=== PATIENT | female | born 1960 | race Caucasian/White ===

== ENCOUNTER 2021-06-10 09:33 | Emergency (ER) | payer BC ==
[2021-06-10 09:46] VITALS: RESP 18
[2021-06-10] MEDS ORDERED: DIPHENOX-ATROP 2.5-0.025 MG 1 EACH TAB PO STA ×2 (09:51→09:58)
[2021-06-10] MEDS ORDERED: SODIUM CHLORIDE 0.9% 1,000 ML IV STA (09:51)
--- NOTE | 2021-06-10 10:01 | ED ---
General Adult HPI - General Chief complaint: Nausea/Vomiting/Diarrhea Stated complaint: Chest pain Time Seen by Provider: 06/10/21 09:40 Source: patient, EMS, RN notes reviewed, old records reviewed Mode of arrival: EMS Limitations: no limitations - History of Present Illness Initial comments: This is a 61-year-old female who presents to the emergency department stating that at 11:00 last night she started vomiting having diarrhea. Patient states that continued throughout the evening. Patient states when EMS arrived they gave her something for vomiting she hasn't vomited since. And she is feeling a little bit less nauseous at this time. Patient states last episode of diarrhea was when she was at her house. Patient denies any abdominal pain. Patient states she doesn't know what caused that last night she had dinner with her and he is not sick. Patient states during the day she did have 1 hamburger from [email or web address] that she did not think tasted good and she wonders if that was the cause. Patient denies any fevers chills. Patient denies any difficulty breathing or chest pain or palpitations. Patient denies any dysuria hematuria urinary frequency. Patient denies any back pain. Patient states she had a short episode of some chest discomfort when she was vomiting. Patient states that only lasts a couple minutes and it is subsided never returned. That occurred at approximately 3:00 in the morning - Related Data Home Medications Medication Instructions Recorded Confirmed Atorvastatin Calcium [Lipitor] 40 mg PO HS 06/10/21 06/10/21 Calcium Carbonate/Vitamin D3 1 tab PO DAILY 06/10/21 06/10/21 [Calcium 600 mg-Vit D3 10 mcg (400 Unit)] Cetirizine HCl 10 mg PO DAILY 06/10/21 06/10/21 Enalapril Maleate 10 mg PO BID 06/10/21 06/10/21 Venlafaxine HCl [Effexor XR] 150 mg PO DAILY 06/10/21 06/10/21 Zinc 50 mg PO DAILY 06/10/21 06/10/21 Allergies Allergy/AdvReac Type Severity Reaction Status Date / Time seasonal allergies Allergy Itching Uncoded 06/10/21 10:48 Review of Systems ROS Statement: Those systems with pertinent positive or pertinent negative responses have been documented in the HPI. ROS Other: All systems not noted in ROS Statement are negative. Past Medical History Past Medical History: Hyperlipidemia, Hypertension Additional Past Medical History / Comment(s): Left bundle branch block, History of Any Multi-Drug Resistant Organisms: None Reported Past Surgical History: Cholecystectomy Additional Past Surgical History / Comment(s): Uteral removal, bunion removal of right foot, Past Psychological History: Anxiety Smoking Status: Never smoker Past Alcohol Use History: Occasional Past Drug Use History: None Reported General Exam - General Exam Comments Initial Comments: GENERAL: Patient is well-developed and well-nourished. Patient is nontoxic and well- hydrated and is in mild distress. ENT: Neck is soft and supple. No significant lymphadenopathy is noted. Oropharynx is clear. Moist mucous membranes. Neck has full range of motion without eliciting any pain. EYES: The sclera were anicteric and conjunctiva were pink and moist. Extraocular movements were intact and pupils were equal round and reactive to light. Eyel ids were unremarkable. PULMONARY: Unlabored respirations. Good breath sounds bilaterally. No audible rales rhonchi or wheezing was noted. CARDIOVASCULAR: There is a regular rate and rhythm without any murmurs gallops or rubs. ABDOMEN: Soft and nontender with normal bowel sounds. SKIN: Skin is clear with no lesions or rashes and otherwise unremarkable. NEUROLOGIC: Patient is alert and oriented x3. Cranial nerves II through XII are grossly intact. Motor and sensory are also intact. Normal speech, volume and content. Symmetrical smile. MUSCULOSKELETAL: Normal extremities with adequate strength and full range of motion. No lower extremity swelling or edema. No calf tenderness. LYMPHATICS: No significant lymphadenopathy is noted PSYCHIATRIC: Normal psychiatric evaluation. N Limitations: no limitations Course Vital Signs 06/10/21 06/10/21 09:39 12:02 Temperature 98.0 F Pulse Rate 87 94 Respiratory 18 18 Rate Blood Pressure 135/103 131/76 O2 Sat by Pulse 97 97 Oximetry Medical Decision Making - Medical Decision Making EKG shows sinus rhythm 82 bpm [place] interval 153 every is 145 Q-T is 420 QTC is 548. Patient's EKG shows a left bundle branch block. Patient received a liter of fluid in the emergency department. Patient also received Lomotil in the emergency department and Zofran in the ambulance. I back in and reevaluated the patient she stated she was still nauseous a little but no vomiting and no diarrhea. Patient was tolerating ice chips in the emergency department with no problems. - Lab Data Result diagrams: 06/10/21 09:57 06/10/21 09:57 Lab Results 06/10/21 06/10/21 06/10/21 Range/Units 09:52 09:57 09:57 WBC 14.9 H (3.8-10.6) k/uL RBC 4.58 (3.80-5.40) m/uL Hgb 14.2 (11.4-16.0) gm/dL Hct 42.4 (34.0-46.0) % MCV 92.6 (80.0-100.0) fL MCH 31.1 (25.0-35.0) pg MCHC 33.6 (31.0-37.0) g/dL RDW 12.9 (11.5-15.5) % Plt Count 267 (150-450) k/uL MPV 7.4 Neutrophils % 94 % Lymphocytes % 2 % Monocytes % 2 % Eosinophils % 1 % Basophils % 0 % Neutrophils # 14.0 H (1.3-7.7) k/uL Lymphocytes # 0.3 L (1.0-4.8) k/uL Monocytes # 0.3 (0-1.0) k/uL Eosinophils # 0.2 (0-0.7) k/uL Basophils # 0.0 (0-0.2) k/uL Sodium (137-145) mmol/L Potassium (3.5-5.1) mmol/L Chloride (98-107) mmol/L Carbon Dioxide (22-30) mmol/L Anion Gap mmol/L BUN (7-17) mg/dL Creatinine (0.52-1.04) mg/dL Est GFR (CKD-EPI)AfAm (>60 ml/min/1.73 sqM) Est GFR (CKD-EPI)NonAf (>60 ml/min/1.73 sqM) Glucose (74-99) mg/dL Calcium (8.4-10.2) mg/dL Total Bilirubin (0.2-1.3) mg/dL AST (14-36) U/L ALT (4-34) U/L Alkaline Phosphatase (38-126) U/L Troponin I <0.012 (0.000-0.034) ng/mL Total Protein (6.3-8.2) g/dL Albumin (3.5-5.0) g/dL Amylase (30-110) U/L Lipase (23-300) U/L Urine Color Yellow Urine Appearance Clear (Clear) Urine pH 5.5 (5.0-8.0) Ur Specific [place] 1.031 (1.001-1.035) Urine Protein Trace H (Negative) Urine Glucose (UA) Negative (Negative) Urine Ketones 2+ H (Negative) Urine Blood Negative (Negative) Urine Nitrite Negative (Negative) Urine Bilirubin Negative (Negative) Urine Urobilinogen <2.0 (<2.0) mg/dL Ur Leukocyte Esterase Negative (Negative) 06/10/21 Range/Units 09:57 WBC (3.8-10.6) k/uL RBC (3.80-5.40) m/uL Hgb (11.4-16.0) gm/dL Hct (34.0-46.0) % MCV (80.0-100.0) fL MCH (25.0-35.0) pg MCHC (31.0-37.0) g/dL RDW (11.5-15.5) % Plt Count (150-450) k/uL MPV Neutrophils % % Lymphocytes % % Monocytes % % Eosinophils % % Basophils % % Neutrophils # (1.3-7.7) k/uL Lymphocytes # (1.0-4.8) k/uL Monocytes # (0-1.0) k/uL Eosinophils # (0-0.7) k/uL Basophils # (0-0.2) k/uL Sodium 137 (137-145) mmol/L Potassium 4.7 (3.5-5.1) mmol/L Chloride 109 H (98-107) mmol/L Carbon Dioxide 22 (22-30) mmol/L Anion Gap 6 mmol/L BUN 28 H (7-17) mg/dL Creatinine 0.56 (0.52-1.04) mg/dL Est GFR (CKD-EPI)AfAm >90 (>60 ml/min/1.73 sqM) Est GFR (CKD-EPI)NonAf >90 (>60 ml/min/1.73 sqM) Glucose 140 H (74-99) mg/dL Calcium 9.0 (8.4-10.2) mg/dL Total Bilirubin 0.7 (0.2-1.3) mg/dL AST 25 (14-36) U/L ALT 26 (4-34) U/L Alkaline Phosphatase 58 (38-126) U/L Troponin I (0.000-0.034) ng/mL Total Protein 7.1 (6.3-8.2) g/dL Albumin 4.1 (3.5-5.0) g/dL Amylase 52 (30-110) U/L Lipase 55 (23-300) U/L Urine Color Urine Appearance (Clear) Urine pH (5.0-8.0) Ur Specific Town[place] (1.001-1.035) Urine Protein (Negative) Urine Glucose (UA) (Negative) Urine Ketones (Negative) Urine Blood (Negative) Urine Nitrite (Negative) Urine Bilirubin (Negative) Urine Urobilinogen (<2.0) mg/dL Ur Leukocyte Esterase (Negative) Disposition Clinical Impression: Gastroenteritis Disposition: HOME SELF-CARE Condition: Good Instructions (If sedation given, give patient instructions): Gastroenteritis (ED) Is patient prescribed a controlled substance at d/c from ED?: No Referrals: Rosalba Carr DO [Primary Care Provider] - 1-2 days Time of Disposition: 12:26
[2021-06-10 10:07] LABS: Basophils % (A) 0 %; Eosinophils # (A) 0.2 k/uL (0-0.7); Eosinophils % (A) 1 %; HCT 42.4 % (34.0-46.0); HGB 14.2 gm/dL (11.4-16.0); Lymphocytes # (A) 0.3 k/uL (1.0-4.8); Lymphocytes % (A) 2 %; MCH 31.1 pg (25.0-35.0); MCHC 33.6 g/dL (31.0-37.0); MCV 92.6 fL (80.0-100.0); Mean Platelet Volume 7.4; Monocytes # (A) 0.3 k/uL (0-1.0); Monocytes % (A) 2 %; Neutrophils % (A) 94 %; Platelet Count 267 k/uL (150-450); RBC 4.58 m/uL (3.80-5.40); RDW 12.9 % (11.5-15.5); WBC 14.9 k/uL (3.8-10.6)
[2021-06-10 10:22] LABS: ALT 26 U/L (4-34); AST 25 U/L (14-36); African American GFR (CKD) >90 (>60 ml/min/1.73 sqM); Albumin 4.1 g/dL (3.5-5.0); Alkaline Phosphatase 58 U/L (38-126); Amylase 52 U/L (30-110); Anion Gap 6 mmol/L; Blood Urea Nitrogen 28 mg/dL (7-17); Carbon Dioxide 22 mmol/L (22-30); Chloride 109 mmol/L (98-107); Glucose 140 mg/dL (74-99); Lipase 55 U/L (23-300); Non-African American GFR(CKD) >90 (>60 ml/min/1.73 sqM); Potassium 4.7 mmol/L (3.5-5.1); Sodium 137 mmol/L (137-145); Total Bilirubin 0.7 mg/dL (0.2-1.3); Total Protein 7.1 g/dL (6.3-8.2)
--- NOTE | 2021-06-10 10:26 | XR ---
EXAMINATION TYPE: XR chest 2V DATE OF EXAM: 06/10/2021 COMPARISON: NONE HISTORY: Chest pain. TECHNIQUE: Frontal and lateral views of the chest are obtained. FINDINGS: There is no focal air space opacity, pleural effusion, or pneumothorax seen. The cardiac silhouette size is upper limits of normal. The osseous structures are intact. Cholecystectomy clips are present. Overlying EKG leads. IMPRESSION: No acute process.
[2021-06-10 11:09] LABS: Appearance,Urine Clear (Clear); Bilirubin,Urine Negative (Negative); Blood,Urine Negative (Negative); Color,Urine Yellow; Glucose,Urine (UA) Negative (Negative); Ketones,Urine 2+ (Negative); Leukocyte Esterase,Urine Negative (Negative); Nitrite,Urine Negative (Negative); PH, Urine 5.5 (5.0-8.0); Protein,Urine Trace (Negative); Specific Gravity,Urine 1.031 (1.001-1.035); Urobilinogen,Urine <2.0 mg/dL (<2.0)
[2021-06-10 12:04] VITALS: BP 131/76
[2021-06-10] MEDS ORDERED: DIPHENOX-ATROP STARTER PACK 8 TAB BTL PO STA (12:27)
[2021-06-10] MEDS ORDERED: ONDANSETRON 4 MG ODT STARTER PACK 2 TAB BTL PO STA (12:27)
[2021-06-10 12:44] VITALS: PULSE 89; TEMP 98
== END 2021-06-10 12:44 | disposition home or self-care (01) ==
LOC: EC 09:33
DX: K52.9 Noninfective gastroenteritis and colitis, unspecified (principal); J30.2 Other seasonal allergic rhinitis; I10 Essential (primary) hypertension
CPT/HCPCS: 36415; 93005; 80053; 82150; 83690; 84484; 85025; 81003; 71046; 99285; S0119

== ENCOUNTER 2022-08-19 15:35 | Observation (INO) | payer BC ==
[2022-08-19] MEDS ORDERED: DILTIAZEM DRIP BOLUS FROM BAG 1 MG SOLN IV ONE (15:59)
[2022-08-19] MEDS ORDERED: DILTIAZEM 125 MG in SODIUM CHLORIDE 0.9% 100 ML IV SCH (16:00)
--- NOTE | 2022-08-19 16:05 | ED ---
General Adult HPI - General Chief complaint: Arrhythmia/Palpitations Stated complaint: heart palpatations Time Seen by Provider: 08/19/22 15:42 Source: patient Mode of arrival: ambulatory Limitations: no limitations - History of Present Illness Initial comments: Dictation was produced using [employer] dictation software. please excuse any grammatical, word or spelling errors. Chief Complaint: 62-year-old female with past medical history of hypertension dyslipidemia presents emergency department for palpitations History of Present Illness: This 62-year-old female she is a social drinker. She drinks alcohol occasionally. She was having a few beers with some friends and also that she started to feel severe palpitations. States that the palpitations causing her to be dizzy. States that she feels dizzy when she walks. Patient has no history of A. fib but her sister was just diagnosed with A. fib. Patient has a history of left bundle-branch block. Patient has any chest pain. Denies any vomiting. No diarrhea. No fevers or constitutional symptoms. The ROS documented in this emergency department record has been reviewed and confirmed by me. Those systems with pertinent positive or negative responses have been documented in the HPI. All other systems are other negative and/or noncontributory. - Related Data Home Medications Medication Instructions Recorded Confirmed Atorvastatin Calcium [Lipitor] 40 mg PO HS 06/10/21 06/10/21 Calcium Carbonate/Vitamin D3 1 tab PO DAILY 06/10/21 06/10/21 [Calcium 600 mg-Vit D3 10 mcg (400 Unit)] Cetirizine HCl 10 mg PO DAILY 06/10/21 06/10/21 Enalapril Maleate 10 mg PO BID 06/10/21 06/10/21 Venlafaxine HCl [Effexor XR] 150 mg PO DAILY 06/10/21 06/10/21 Zinc 50 mg PO DAILY 06/10/21 06/10/21 Allergies Allergy/AdvReac Type Severity Reaction Status Date / Time seasonal allergies Allergy Itching Uncoded 08/19/22 17:07 Review of Systems ROS Statement: Those systems with pertinent positive or pertinent negative responses have been documented in the HPI. ROS Other: All systems not noted in ROS Statement are negative. Past Medical History Past Medical History: Hyperlipidemia, Hypertension Additional Past Medical History / Comment(s): Left bundle branch block, History of Any Multi-Drug Resistant Organisms: None Reported Past Surgical History: Cholecystectomy, Hysterectomy Additional Past Surgical History / Comment(s): Uteral removal, bunion removal of right foot, Past Psychological History: Anxiety Smoking Status: Never smoker Past Alcohol Use History: Occasional Past Drug Use History: None Reported General Exam - General Exam Comments Initial Comments: PHYSICAL EXAM: General Impression: Alert and oriented x3, not in acute distress HEENT: Normocephalic atraumatic, extra-ocular movements intact, pupils equal and reactive to light bilaterally, mucous membranes moist. Cardiovascular: Irregularly irregular, tachycardic Chest: Able to complete full sentences, no retractions, no tachypnea Abdomen: abdomen soft, non-tender, non-distended, no organomegaly Musculoskeletal: Pulses present and equal in all extremities, no peripheral edema Motor: no focal deficits noted Neurological: CN II-XII grossly intact, no focal motor or sensory deficits noted Skin: Intact with no visualized rashes Psych: Normal affect and mood Limitations: no limitations Course Vital Signs 08/19/22 08/19/22 08/19/22 15:38 15:41 16:29 Temperature 98.1 F Pulse Rate 67 172 H 141 H Pulse Rate [ 170 H Adoption Services Manager ] Respiratory 16 18 Rate Blood Pressure 122/84 127/87 O2 Sat by Pulse 95 97 Oximetry EKG Findings - EKG Comments: EKG Findings:: My EKG interpretation: Ventricular rate 152, A. fib with RVR, QRS 131, QTc 381. No [place] prolongation, no QTC prolongation, no ST or T-wave changes noted. Compared to previous EKG from [email or web address] and that EKG shows that patient has history of wide QRS. Overall, this EKG shows A. fib and RVR with aberrancy Medical Decision Making - Medical Decision Making Was pt. sent in by a medical professional or institution (, PA, CREDIT ADMINISTRATION OFFICER, urgent care, hospital, or detention...) When possible be specific @ -No Did you speak to anyone other than the patient for history (EMS, parent, family, police, friend...)? What history was obtained from this source @ - at the bedside Did you review nursing and triage notes (agree or disagree)? Why? @ -I reviewed and agree with nursing and triage notes Were old charts reviewed (outside hosp., previous admission, EMS record, old EKG, old radiological studies, urgent care reports/EKG's, detention records)? Report findings @ -No old charts were reviewed Differential Diagnosis (chest pain, altered mental status, abdominal pain women, abdominal pain men, vaginal bleeding, musculoskeletal, weakness, fever, dyspnea, syncope, headache, dizziness, GI bleed, back pain, seizure, CVA, palpatations, mental health)? @ - Differential Palpitations: Ventricular arrhythmias, atrial arrhythmias, myocardial infarction, anemia, thyrotoxicosis, electrolyte imbalance, hypokalemia, pulmonary embolism, pulmonary disease, drugs, alcohol, anxiety, stress.... This is not meant to be an all-inclusive list. EKG interpreted by me (3pts min.). @ -As above X-rays interpreted by me (1pt min.). @ -Nonacute chest x-ray CT interpreted by me (1pt min.). @ -None done U/S interpreted by me (1pt. min.). @ -None done What testing was considered but not performed or refused? (CT, X-rays, U/S, labs)? Why? @ -None What meds were considered but not given or refused? Why? @ -None Did you discuss the management of the patient with other professionals ( professionals i.e. , PA, CREDIT ADMINISTRATION OFFICER, lab, RT, psych nurse, social sciences department chair, technical sales engineer, teacher, airconditioning drafting officer, home health care case manager)? Give summary @ -Case discussed with hospitalist for admission. Before conversation patient had converted to normal sinus rhythm. Requested that Cardizem drip be discontinued Was smoking cessation discussed for >3mins.? @ -No Was critical care preformed (if so, how long)? @ -33 minutes Were there social determinants of health that impacted care today? How? (Homelessness, low income, unemployed, alcoholism, drug addiction, transportation, low edu. Level, literacy, decrease access to med. care, longterm, rehab)? @ -No Was there de-escalation of care discussed even if they declined (Discuss DNR or withdrawal of care, Hospice)? DNR status @ -No What co-morbidities impacted this encounter? (DM, HTN, Smoking, COPD, CAD, Cancer, CVA, ARF, Chemo, Hep., AIDS, mental health diagnosis, sleep apnea, morbid obesity)? @ -None Was patient admitted / discharged? Hospital course, mention meds given and route, prescriptions, significant lab abnormalities, going to OR and other pertinent info. @ -62-year-old female presents emergency department for palpitations. She states it occurred while she was having beers with friends. Patient came in with atrial fibrillation rapid ventricular rate. She does clearly report time of onset. Patient started on Cardizem and heparin. After several minutes on Cardizem she converted to normal sinus rhythm. Cardizem was discontinued. Patient be admitted observation. Heparin will be continued. Cardiology consulted. Undiagnosed new problem with uncertain prognosis? @ -No Drug Therapy requiring intensive monitoring for toxicity (Heparin, Nitro, Insulin, Cardizem)? @ -No Were any procedures done? @ -No Diagnosis/symptom? Acute, or Chronic, or Acute on Chronic? Uncomplicated (without systemic symptoms) or Complicated (systemic symptoms)? @ -1. Acute paroxysmal atrial fibrillation Side effects of treatment? @ -No Exacerbation, Progression, or Severe Exacerbation? @ -No Poses a threat to life or bodily function? How? (Chest pain, [place], [place], pneumonia, PE, COPD, DKA, ARF, appy, cholecystitis, CVA, Diverticulitis, Homicidal, Suicidal, threat to staff... and all critical care pts) @ -yes - Lab Data Result diagrams: 08/19/22 16:00 08/19/22 16:00 Lab Results 08/19/22 08/19/22 08/19/22 Range/Units 16:00 16:00 16:00 WBC 7.4 (3.8-10.6) k/uL RBC 4.85 (3.80-5.40) m/uL Hgb 14.3 (11.4-16.0) gm/dL Hct 43.1 (34.0-46.0) % MCV 89.0 (80.0-100.0) fL MCH 29.5 (25.0-35.0) pg MCHC 33.1 (31.0-37.0) g/dL RDW 13.0 (11.5-15.5) % Plt Count 269 (150-450) k/uL MPV 7.1 Neutrophils % 53 % Lymphocytes % 37 % Monocytes % 6 % Eosinophils % 1 % Basophils % 1 % Neutrophils # 4.0 (1.3-7.7) k/uL Lymphocytes # 2.7 (1.0-4.8) k/uL Monocytes # 0.4 (0-1.0) k/uL Eosinophils # 0.1 (0-0.7) k/uL Basophils # 0.0 (0-0.2) k/uL PT 9.5 (9.0-12.0) sec INR 0.9 (<1.2) APTT 21.7 L (22.0-30.0) sec Sodium 139 (137-145) mmol/L Potassium 4.0 (3.5-5.1) mmol/L Chloride 105 (98-107) mmol/L Carbon Dioxide 21 L (22-30) mmol/L Anion Gap 13 mmol/L BUN 18 H (7-17) mg/dL Creatinine 0.46 L (0.52-1.04) mg/dL Est GFR (CKD-EPI)AfAm >90 (>60 ml/min/1.73 sqM) Est GFR (CKD-EPI)NonAf >90 (>60 ml/min/1.73 sqM) Glucose 87 (74-99) mg/dL Calcium 9.7 (8.4-10.2) mg/dL Magnesium 1.7 (1.6-2.3) mg/dL Troponin I (0.000-0.034) ng/mL 08/19/22 Range/Units 16:00 WBC (3.8-10.6) k/uL RBC (3.80-5.40) m/uL Hgb (11.4-16.0) gm/dL Hct (34.0-46.0) % MCV (80.0-100.0) fL MCH (25.0-35.0) pg MCHC (31.0-37.0) g/dL RDW (11.5-15.5) % Plt Count (150-450) k/uL MPV Neutrophils % % Lymphocytes % % Monocytes % % Eosinophils % % Basophils % % Neutrophils # (1.3-7.7) k/uL Lymphocytes # (1.0-4.8) k/uL Monocytes # (0-1.0) k/uL Eosinophils # (0-0.7) k/uL Basophils # (0-0.2) k/uL PT (9.0-12.0) sec INR (<1.2) APTT (22.0-30.0) sec Sodium (137-145) mmol/L Potassium (3.5-5.1) mmol/L Chloride (98-107) mmol/L Carbon Dioxide (22-30) mmol/L Anion Gap mmol/L BUN (7-17) mg/dL Creatinine (0.52-1.04) mg/dL Est GFR (CKD-EPI)AfAm (>60 ml/min/1.73 sqM) Est GFR (CKD-EPI)NonAf (>60 ml/min/1.73 sqM) Glucose (74-99) mg/dL Calcium (8.4-10.2) mg/dL Magnesium (1.6-2.3) mg/dL Troponin I <0.012 (0.000-0.034) ng/mL Disposition Clinical Impression: Atrial fibrillation Disposition: ADMITTED IP TO THIS HOSP Condition: Fair Referrals: Rosalba Carr DO [Primary Care Provider] - 1-2 days Decision Time: 17:07
[2022-08-19 16:10] LABS: Basophils % (A) 1 %; Eosinophils # (A) 0.1 k/uL (0-0.7); Eosinophils % (A) 1 %; HCT 43.1 % (34.0-46.0); HGB 14.3 gm/dL (11.4-16.0); Lymphocytes # (A) 2.7 k/uL (1.0-4.8); Lymphocytes % (A) 37 %; MCH 29.5 pg (25.0-35.0); MCHC 33.1 g/dL (31.0-37.0); Mean Platelet Volume 7.1; Monocytes # (A) 0.4 k/uL (0-1.0); Monocytes % (A) 6 %; Neutrophils % (A) 53 %; Platelet Count 269 k/uL (150-450); RBC 4.85 m/uL (3.80-5.40); WBC 7.4 k/uL (3.8-10.6)
--- NOTE | 2022-08-19 16:27 | XR ---
EXAMINATION TYPE: XR chest 1V portable DATE OF EXAM: 08/19/2022 Comparison: 06/10/2021 Clinical History: 62-year-old female new onset afib Findings: Heart upper limits of normal in size. Aorta and pulmonary vasculature within normal limits. No consol idation or pleural effusion. Impression: No acute cardiopulmonary process.
[2022-08-19 16:31] LABS: African American GFR (CKD) >90 (>60 ml/min/1.73 sqM); Anion Gap 13 mmol/L; Blood Urea Nitrogen 18 mg/dL (7-17); Calcium 9.7 mg/dL (8.4-10.2); Carbon Dioxide 21 mmol/L (22-30); Chloride 105 mmol/L (98-107); Glucose 87 mg/dL (74-99); Magnesium 1.7 mg/dL (1.6-2.3); Non-African American GFR(CKD) >90 (>60 ml/min/1.73 sqM); Sodium 139 mmol/L (137-145)
[2022-08-19 16:58] LABS: INR 0.9 (<1.2); Partial Thromboplastin Time 21.7 sec (22.0-30.0); Prothrombin Time 9.5 sec (9.0-12.0)
[2022-08-19] MEDS ORDERED: NALOXONE 0.4 MG/ML 1 ML VIAL IV PRN (17:04)
[2022-08-19] MEDS ORDERED: ONDANSETRON 4 MG/2 ML VIAL IVP PRN (17:04)
[2022-08-19] MEDS ORDERED: SODIUM CHLORIDE 0.9% 1,000 ML IV SCH (17:15)
--- NOTE | 2022-08-19 17:38 | P.HPIM ---
History of Present Illness H&P Date: 08/19/22 Patient is a 62-year-old female with history of hypertension, dyslipidemia, depression presenting with palpitations and lightheadedness. She claims that she was at a restaurant, when she started experiencing palpitations, and also noticed some lightheadedness and tingling in her left arm. Currently she denies any chest pain, shortness breath, abdominal pain, nausea, vomiting, diarrhea, constipation, or urinary complaints. She denies any recent fevers or chills, no recent travel history or sick contacts. In the ED, temperature was 98.1, tachycardic up to 172, respiratory rate 16, blood pressure 122/84, saturating at 95% on room air. Laboratory workup showed WBC 7.4, hemoglobin 14.3, platelet 269, sodium 139, bicarb 21, creatinine 0.46, troponin negative, magnesium 1.7. Initial EKG showed atrial fibrillation with RVR. Subsequent EKG showed sinus rhythm with left bundle branch block. Chest x-ray did not show any acute process. Patient was previously on Cardizem drip, converted to sinus rhythm. Patient being admitted for new onset atrial fibrillation. Pertinent positives and negatives as discussed in HPI, a complete review of systems was performed and all other systems are negative. Patient seen and examined at bedside. Vital signs reviewed General: nontoxic, no distress, appears at stated age Derm: warm, dry Head: atraumatic, normocephalic, symmetric Eyes: EOMI, no lid lag, anicteric sclera, pupils equal round reactive to light ENT: Nose and ears atraumatic Neck: No thyromegaly, supple Mouth: no lip lesion, mucus membranes moist Cardiovascular: S1S2 reg, no murmur, no edema Lungs: clear to auscultation bilateral, no rhonchi, no rales, no wheeze, no accessory muscle use Abdominal: soft, nontender to palpation, no guarding, no appreciable or ganomegaly Ext: no gross muscle atrophy, muscle strength muscle strength 5 out of 5 in all 4 extremities, no contractures Neuro: CN II-XII grossly intact Psych: Alert, oriented, appropriate affect Assessment/Plan: Active: New-onset atrial fibrillation with RVR Hypomagnesemia -EKG independently interpreted, shows atrial fibrillation with RVR and left bundle branch block, subsequent EKG showed sinus rhythm -Chest x-ray independently interpreted, shows no opacities -Started on metoprolol tartrate 12.5 mg twice a day -Started on Eliquis -Magnesium sulfate 2 g IV ordered -Echocardiogram ordered -Cardiology consulted -Telemetry Resolved: Chronic: Hypertension Dyslipidemia Depression History of left bundle branch block The patient is admitted with an anticipated less than 2 midnight stay as observation status for evaluation of atrial fibrillation with RVR. Surrogate decision-maker: spouse CODE STATUS: Full code DVT prophylaxis: Eliquis Anticipated discharge date: 1-[address]: Home A total of 55 minutes was spent on the care of this complex patient more than 50% of the time was spent in counseling and care coordination. Past Medical History Past Medical History: Hyperlipidemia, Hypertension Additional Past Medical History / Comment(s): Left bundle branch block, History of Any Multi-Drug Resistant Organisms: None Reported Past Surgical History: Cholecystectomy, Hysterectomy Additional Past Surgical History / Comment(s): Uteral removal, bunion removal of right foot, Past Psychological History: Anxiety Smoking Status: Never smoker Past Alcohol Use History: Occasional Past Drug Use History: None Reported Medications and Allergies Home Medications Medication Instructions Recorded Confirmed Type Atorvastatin Calcium [Lipitor] 40 mg PO HS 06/10/21 08/19/22 History Calcium Carbonate/Vitamin D3 2 tab PO HS 06/10/21 08/19/22 History [Calcium 600 mg-Vit D3 10 mcg (400 Unit)] Enalapril Maleate 10 mg PO BID 06/10/21 08/19/22 History Venlafaxine HCl [Effexor XR] 150 mg PO DAILY 06/10/21 08/19/22 History Allergies Allergy/AdvReac Type Severity Reaction Status Date / Time seasonal allergies Allergy Itching Uncoded 08/19/22 17:07 Physical Exam Vitals: Vital Signs Temp Pulse Pulse Resp BP Pulse Ox 08/19/22 17:35 90 18 118/76 97 08/19/22 16:29 141 H 18 127/87 97 08/19/22 15:41 172 H 170 H 08/19/22 15:38 98.1 F 67 16 122/84 95 Intake and Output 08/19/22 08/19/22 08/19/22 06:59 14:59 22:59 Intake Total 4 Balance 4 Intake: Intake, IV Titration 4 Amount Diltiazem 125 mg In 4 Sodium Chloride 0.9% 100 ml @ 10 MG/HR 10 mls/hr IV .[id number] [facility] Rx#: [id number] Other: Weight 74.389 kg Results CBC & Chem 7: 08/19/22 16:00 08/19/22 16:00 Labs: Abnormal Lab Results - Last 24 Hours (Table) 08/19/22 08/19/22 Range/Units 16:00 16:00 APTT 21.7 L (22.0-30.0) sec Carbon Dioxide 21 L (22-30) mmol/L BUN 18 H (7-17) mg/dL Creatinine 0.46 L (0.52-1.04) mg/dL
[2022-08-19] MEDS: MAGNESIUM SULFATE-D5W PMX 1 GM in DEXTROSE/WATER 1 100ML.BAG IVPB SCH ×2 (18:16→20:01)
[2022-08-19] MEDS: APIXABAN 5 MG TAB PO SCH (20:00)
[2022-08-19] MEDS: METOPROLOL TARTRATE 12.5 MG TAB PO SCH (20:00)
[2022-08-19] MEDS ORDERED: ATORVASTATIN 40 MG TAB PO SCH (21:00)
[2022-08-19] MEDS ORDERED: CALCIUM CARB-VIT D 500 MG-5 MCG TAB PO SCH (21:00)
[2022-08-20] MEDS: APIXABAN 5 MG TAB PO SCH (08:26)
[2022-08-20] MEDS: METOPROLOL TARTRATE 12.5 MG TAB PO SCH (08:26)
[2022-08-20] MEDS ORDERED: lisinopriL 20 MG TAB PO SCH (09:00)
[2022-08-20] MEDS ORDERED: VENLAFAXINE HCL ER 150 MG CAP PO SCH (09:00)
[2022-08-20 12:11] VITALS: TEMP 97.2
[2022-08-20 12:12] VITALS: BP 117/69; PULSE 82; RESP 14
--- NOTE | 2022-08-20 15:00 | P.CRDCN ---
History of Present Illness Consult date: 08/20/22 Consult reason: atrial fibrillation Chief complaint: palpitations, dizziness History of present illness: History of present illness: This is a pleasant 62 -year-old female with significant past medical history of hypertension, hyperlipidemia, left bundle branch block presented to the emergency department with complaints of palpitations and dizziness. She does follow with rf test technician Dr. Osborn. She reports family history of a sister with A. carey. She was never a smoker. She drinks alcohol socially, denies any drug use. She gets occasional palpitations however, yesterday this was significantly worse and felt different from her prior palpitations. She also felt dizzy, chest tightness with the palpitations, and her left arm felt "weird". In the ER, EKG showed atrial fibrillation with RVR 152 bpm. She was started on a Cardizem drip and did convert to sinus rhythm. Cardizem drip was DC'd and she was started on metoprolol. Chest x-ray with no acute findings. Labs reviewed: Troponin negative, potassium 4.0, magnesium 1.7, creatinine 0.46. She is feeling better this morning, back to her baseline. REVIEW OF SYSTEMS: No fever or chills. No cough or expectoration. No diaphoresis. Patient denies headache, dizziness, blurred vision, double vision. Patient denies any stomach discomfort. No nausea, vomiting. No hematochezia. No hematemesis. Denies any black stools or blood in his stools. Denies dysuria or hematuria. No muscle weakness or numbness. No chest pain or pressure. PHYSICAL EXAMINATION: This is a 62-year-old female in no apparent distress at the time of my examination. HEENT: Head is atraumatic, normocephalic. Pupils are equal, round. Sclerae anicteric. Conjunctivae are clear. Mucous membranes of the mouth are moist. Neck is supple. There is no jugular venous distention. No carotid bruit is heard. CHEST EXAMINATION: Lungs are clear to auscultation. No chest wall tenderness is noted on palpation or with deep breathing. HEART EXAMINATION: Heart regular rate and rhythm. S1, S2 heard. No murmurs, gallops or rub. ABDOMEN: Soft, nontender. Bowel sounds are heard. EXTREMITIES: 2+ peripheral pulses with no evidence of peripheral edema and no calf tenderness noted. NEUROLOGIC EXAMINATION: Patient is awake, alert and oriented x3. IMPRESSION AND PLAN: Paroxysmal atrial fibrillation, new onset Hypertension Hyperlipidemia Left bundle branch block PLAN: She reamins in sinus rhythm this am. [id number] score is 2, recommend anticoagulation for stroke prevention. Continue metoprolol at discharge. Check Echo to evaluate heart function and structure. Echo reviewed by Dr. Correa with ejection fraction 5560%. Okay to discharge from cardiology standpoint. Recommend following up with her rf test technician, or with us in the office in 1 week. I am dictating on behalf of Dr. Ross Correa's history/physical and assessment/plan. Past Medical History Past Medical History: Hyperlipidemia, Hypertension Additional Past Medical History / Comment(s): Left bundle branch block, History of Any Multi-Drug Resistant Organisms: None Reported Past Surgical History: Cholecystectomy, Hysterectomy Additional Past Surgical History / Comment(s): Uteral removal, bunion removal of right foot, Past Psychological History: Anxiety Smoking Status: Never smoker Past Alcohol Use History: Occasional Past Drug Use History: None Reported - Past Family History Sister(s) Family Medical History: AFIB Medications and Allergies Home Medications Medication Instructions Recorded Confirmed Type Atorvastatin Calcium [Lipitor] 40 mg PO HS 06/10/21 08/19/22 History Calcium Carbonate/Vitamin D3 2 tab PO HS 06/10/21 08/19/22 History [Calcium 600 mg-Vit D3 10 mcg (400 Unit)] Enalapril Maleate 10 mg PO BID 06/10/21 08/19/22 History Venlafaxine HCl [Effexor XR] 150 mg PO DAILY 06/10/21 08/19/22 History Apixaban [Eliquis] 5 mg PO BID #60 tab 08/20/22 Rx Metoprolol Tartrate [Lopressor] 12.5 mg PO BID #60 tab 08/20/22 Rx Allergies Allergy/AdvReac Type Severity Reaction Status Date / Time seasonal allergies Allergy Itching Uncoded 08/19/22 17:07 Physical Exam Vitals: Vital Signs Temp Pulse Pulse Resp BP BP Pulse Ox 08/20/22 04:00 97.7 F 69 18 121/71 96 08/20/22 00:00 97.8 F 73 18 121/63 96 08/19/22 20:00 97.6 F 84 18 117/78 97 08/19/22 18:28 79 18 118/59 98 08/19/22 17:35 90 18 118/76 97 08/19/22 16:29 141 H 18 127/87 97 08/19/22 15:41 172 H 170 H 08/19/22 15:38 98.1 F 67 16 122/84 95 Intake and Output 08/19/22 08/20/22 08/20/22 22:59 06:59 14:59 Intake Total 4 250 Balance 4 250 Intake: Intake, IV Titration 4 Amount Diltiazem 125 mg In 4 Sodium Chloride 0.9% 100 ml @ 10 MG/HR 10 mls/hr IV [id number] Rx#: [id number] Oral 250 Other: Voiding Method Toilet Toilet # Voids 1 Weight 74.389 kg Results 08/19/22 16:00 08/19/22 16:00 Cardiac Enzymes 08/19/22 Range/Units 16:00 Troponin I <0.012 (0.000-0.034) ng/mL Coagulation 08/19/22 Range/Units 16:00 PT 9.5 (9.0-12.0) sec APTT 21.7 L (22.0-30.0) sec CBC 08/19/22 Range/Units 16:00 WBC 7.4 (3.8-10.6) k/uL RBC 4.85 (3.80-5.40) m/uL Hgb 14.3 (11.4-16.0) gm/dL Hct 43.1 (34.0-46.0) % Plt Count 269 (150-450) k/uL Comprehensive Metabolic Panel 08/19/22 Range/Units 16:00 Sodium 139 (137-145) mmol/L Potassium 4.0 (3.5-5.1) mmol/L Chloride 105 (98-107) mmol/L Carbon Dioxide 21 L (22-30) mmol/L BUN 18 H (7-17) mg/dL Creatinine 0.46 L (0.52-1.04) mg/dL Glucose 87 (74-99) mg/dL Calcium 9.7 (8.4-10.2) mg/dL Current Medications Generic Name Dose Route Start Last Admin Trade Name Freq PRN Reason Stop Dose Admin Apixaban 5 mg 08/19/22 21:00 08/20/22 08:26 Apixaban 5 Mg Tab PO 5 mg BID JANET Administration Protocol Atorvastatin Calcium 40 mg 08/19/22 21:00 08/19/22 20:00 Atorvastatin 40 Mg Tab PO 40 mg HS JANET Administration Calcium Carbonate 2 each 08/19/22 21:00 08/19/22 20:00 Calcium Carb-Vit D 500 Mg-5 Mcg Tab PO 2 each HS JANET Administration Sodium Chloride 1,000 mls @ 20 mls/hr 08/19/22 17:15 08/19/22 17:34 Saline 0.9% IV 20 mls/hr .Q24H JANET Administration Lisinopril 40 mg 08/20/22 09:00 08/20/22 08:26 Lisinopril 20 Mg Tab PO 40 mg DAILY JANET Administration Metoprolol Tartrate 12.5 mg 08/19/22 21:00 08/20/22 08:26 Metoprolol Tartrate 12.5 Mg Tab PO 12.5 mg BID JANET Administration Naloxone HCl 0.2 mg 08/19/22 17:04 Naloxone 0.4 Mg/Ml 1 Ml Vial IV Q2M PRN Opioid Reversal Ondansetron HCl 4 mg 08/19/22 17:04 Ondansetron 4 Mg/2 Ml Vial IVP Q8HR PRN Nausea And Vomiting Venlafaxine HCl 150 mg 08/20/22 09:00 08/20/22 08:26 Venlafaxine Hcl Er 150 Mg Cap PO 150 mg DAILY JANET Administration Intake and Output 08/19/22 08/20/22 08/20/22 22:59 06:59 14:59 Intake Total 4 250 Balance 4 250 Intake: Intake, IV Titration 4 Amount Diltiazem 125 mg In 4 Sodium Chloride 0.9% 100 ml @ 10 MG/HR 10 mls/hr IV [id number] Rx#: [id number] Oral 250 Other: Voiding Method Toilet Toilet # Voids 1 Weight 74.389 kg 08/19/22 16:00 08/19/22 16:00
--- NOTE | 2022-08-20 15:10 | P.DS ---
Providers Date of admission: 08/19/22 17:04 Expected date of discharge: 08/20/22 Attending physician: Boy Jamison MD Consults: 08/19/22 17:04 Consult Physician Routine Consulting Provider: Ross Correa Consult Reason/Comments: new onset afib Do you want consulting provider notified?: Yes Primary care physician: Rosalba Carr DO Hospital Course: Discharge Diagnosis: A. fib with RVR, new onset Hypomagnesemia Dyslipidemia Hypertension Left bundle branch block Hospital Course: Patient is a 62-year-old female with hypertension, dyslipidemia, and known left bundle branch block who presented to the ER with complaints of palpitations. She was subsequently found to have atrial fibrillation with rapid ventricular response on EKG. She was started on Cardizem and heparin drip. She converted to normal sinus rhythm. She was admitted to the telemetry unit. Her Cardizem drip was discontinued and she was started on metoprolol. She was evaluated by cardiology and per verbal report her echocardiogram showed preserved ejection fraction of 55-60%. She was doing well and maintained normal sinus rhythm. She was determined stable for discharge home. Follow-up: Patient will be on metoprolol 25 mg twice daily. She was started on Eliquis 5 mg twice daily. She'll follow up with her die maker or Dr. Correa in 1 week. Patient seen and examined at bedside. No chest pain, SOB, palpitations. Sister has A fib. We discussed risks vs benefits of anticoagulation and she is in agreement with anticoagulation. Vital signs reviewed and stable. General: nontoxic, no distress, appears at stated age Derm: warm, dry Head: atraumatic, normocephalic, symmetric Eyes: EOMI, no lid lag, anicteric sclera Cardiovascular: S1S2 reg, no murmur, positive posterior tibial pulse bilateral, Lungs: CTA bilateral, no rhonchi, no rales , no accessory muscle use Ext: no gross muscle atrophy, no edema, no contractures Neuro: CN II-XI grossly intact, no focal neuro deficits Psych: Alert, oriented, appropriate affect A total of 27 minutes of time were spent preparing this complex discharge summary. Patient was discharged on 08/20/22. This dictation was prepared using [employer] voice recognition software. Though every attempt is made to correct errors during during dictation some may still exist. Patient Condition at Discharge: Fair Plan - Discharge Summary Discharge Rx Participant: No New Discharge Prescriptions: New Apixaban [Eliquis] 5 mg PO BID #60 tab Metoprolol Tartrate [Lopressor] 12.5 mg PO BID #60 tab Continue Calcium Carbonate/Vitamin D3 [Calcium 600 mg-Vit D3 10 mcg (400 Unit)] 2 tab PO HS Venlafaxine HCl [Effexor XR] 150 mg PO DAILY Enalapril Maleate 10 mg PO BID Atorvastatin Calcium [Lipitor] 40 mg PO HS Discharge Medication List Atorvastatin Calcium [Lipitor] 40 mg PO HS 06/10/21 [History] Calcium Carbonate/Vitamin D3 [Calcium 600 mg-Vit D3 10 mcg (400 Unit)] 2 tab PO HS 06/10/21 [History] Enalapril Maleate 10 mg PO BID 06/10/21 [History] Venlafaxine HCl [Effexor XR] 150 mg PO DAILY 06/10/21 [History] Apixaban [Eliquis] 5 mg PO BID #60 tab 08/20/22 [Rx] Metoprolol Tartrate [Lopressor] 12.5 mg PO BID #60 tab 08/20/22 [Rx] Follow up Appointment(s)/Referral(s): Ross Correa DO [STAFF PHYSICIAN] - 1 Week Rosalba Carr DO [Primary Care Provider] - 1-2 days Patient Instructions/Handouts: A-fib (Atrial Fibrillation) (ED), Safe Use of Anticoagulants (DC) Activity/Diet/Wound Care/Special Instructions: Activity: As tolerated Diet: Heart healthy Special Instructions: Please follow-up with Dr. Correa in the clinic for the results of your echo. Discharge Disposition: HOME SELF-CARE
--- NOTE | 2022-08-20 16:17 | CA ---
Transthoracic Echo Report Name: Kamron Rosado Age: 62 Gender: F : 1960 Exam Date: 08/20/2022 07:19 Exam Location: [facility] Ht (in): 64 Wt (lb): 164 Ordering Physician: Boy Jamison MD Attending/Referring Phys: Customer Advocacy Manager Jeremias Donohue RDCS Procedure CPT: Indications: New onset afib Cardiac Hx: HTN Technical Quality: Fair Contrast 1: Total Dose (mL): Contrast 2: Total Dose (mL): MEASUREMENTS (Male / Female) Normal Values 2D ECHO LV Diastolic Diameter PLAX 3.4 cm 4.2 - 5.9 / 3.9 - 5.3 cm LV Systolic Diameter PLAX 2.3 cm LV Fractional Shortening PLAX 31.7 % IVS Diastolic Thickness 1.4 cm 0.6 - 1.0 / 0.6 - 0.9 cm IVS Systolic Thickness 2.2 cm LVPW Diastolic Thickness 1.4 cm 0.6 - 1.0 / 0.6 - 0.9 cm LVPW Systolic Thickness 2.1 cm LV Relative Wall Thickness 0.8 RV Internal Dim ED PLAX 3.7 cm LVOT Diameter 2.0 cm LA Systolic Diameter LX 2.5 cm 3.0 - 4.0 / 2.7 - 3.8 cm LV Diastolic Volume MOD BP 97.0 cm??? 67 - 155 / 56 - 104 cm??? LV Systolic Volume MOD BP 33.9 cm??? 22 - 58 / 19 - 49 cm??? LV Ejection Fraction MOD BP 65.1 % >= 55 % LV Stroke Volume MOD BP 63.1 cm??? LV Diastolic Volume MOD 4C 90.8 cm??? LV Systolic Volume MOD 4C 28.6 cm??? LV Ejection Fraction MOD 4C 68.5 % LV Stroke Volume MOD 4C 62.2 cm??? LV Diastolic Length 4C 8.1 cm LV Systolic Length 4C 6.2 cm LV Diastolic Volume MOD 2C 90.3 cm??? LV Systolic Volume MOD 2C 39.4 cm??? LV Ejection Fraction MOD 2C 56.4 % LV Stroke Volume MOD 2C 50.9 cm??? LV Diastolic Length 2C 7.0 cm LV Systolic Length 2C 6.1 cm M-MODE Aortic Root Diameter MM 3.2 cm LA Systolic Diameter MM 2.6 cm LA Ao Ratio MM 0.8 AV Cusp Separation MM 1.4 cm DOPPLER AV Peak Velocity 127.0 cm/s AV Peak Gradient 6.4 mmHg LVOT Peak Velocity 125.8 cm/s LVOT Peak Gradient 6.3 mmHg AV Area Cont Eq pk 3.0 cm??? MV Peak Velocity 109.1 cm/s MV Peak Gradient 4.8 mmHg MV Mean Velocity 81.4 cm/s MV Mean Gradient 2.9 mmHg MV Velocity Time Integral 25.5 cm MV Deceleration [place] 774.9 cm/s??? MR Peak Velocity 457.2 cm/s MR Peak Gradient 83.6 mmHg MR Flow Rate PISA 64.9 cm???/s Mitral E Point Velocity 95.5 cm/s Mitral A Point Velocity 109.0 cm/s Mitral E to A Ratio 0.9 MV Deceleration Time 123.3 ms MV E' Velocity 4.0 cm/s Mitral E to MV E' Ratio 24.1 Pulmonary Vein Systolic Velocity 53.4 cm/s Pulmonary Vein Diastolic Velocit 28.1 cm/s Pulmonary Vein S/D Ratio 1.9 Pulmonary Vein A Velocity 29.9 cm/s Pulmonary Vein A to Mitral A Rat 0.3 TR Peak Velocity 230.2 cm/s TR Peak Gradient 21.2 mmHg Right Ventricular Systolic Press 31.2 mmHg PV Peak Velocity 68.9 cm/s PV Peak Gradient 1.9 mmHg FINDINGS Left Ventricle Left ventricular ejection fraction is estimated at 55-60 %. Mild concentric left ventricular hypertrophy. Grade 1 diastolic dysfunction. Normal basal systolic function. Right Ventricle Normal right ventricular size and function. RVSP- 31 mm Hg Right Atrium Normal right atrial size. Left Atrium Normal left atrial size. Mitral Valve Mitral valve thickened. Mild mitral regurgitation Aortic Valve Trileaflet aortic valve. No aortic stenosis. No aortic regurgitation. Tricuspid Valve Mild tricuspid regurgitation. Pulmonic Valve Structurally normal pulmonic valve. Trace to mild pulmonic regurgitation. Pericardium No pericardial effusion. Aorta Normal size aortic root and proximal ascending aorta. CONCLUSIONS Left ventricular ejection fraction 55-60% Mild increased left ventricular wall thickness RVSP 31 Mild mitral regurgitation Mild tricuspid regurgitation No pericardial effusion Previewed by: Dr. Ross Correa DO (Electronically Signed) Final Date: 20 August 2022 16:16
== END 2022-08-20 14:49 | disposition home or self-care (01) ==
LOC: EC 15:35 → 3SCARD 17:04
PROVIDERS: ADMIT Student in an Organized Health Care Education/Training Program; ATTEND Student in an Organized Health Care Education/Training Program
DX: I48.0 Paroxysmal atrial fibrillation (principal); E83.42 Hypomagnesemia; I44.7 Left bundle-branch block, unspecified; I10 Essential (primary) hypertension; E78.5 Hyperlipidemia, unspecified; F32.A Depression, unspecified; F41.9 Anxiety disorder, unspecified; Z79.899 Other long term (current) drug therapy; Z91.09 Other allergy status, other than to drugs and biological substances; Z90.49 Acquired absence of other specified parts of digestive tract; Z90.6 Acquired absence of other parts of urinary tract; Z90.710 Acquired absence of both cervix and uterus; Z98.890 Other specified postprocedural states; Z82.49 Family history of ischemic heart disease and other diseases of the circulatory system
CPT/HCPCS: 96367; 96376; 96365; 99285; 36415; 93005; 93306; 80048; 84443; 83735 ×2; 84484; 85025; 85610; 85730; 71045; G0378 ×2; J3475